=== PATIENT | female | born 2005 | race Two or more races ===

== ENCOUNTER 2023-12-15 11:10 | Outpatient (REF) | payer BC, SELFPAY ==
[2023-12-15 12:45] LABS: MANUAL DIFF FLAG NO
[2023-12-15 13:27] LABS: Basophils Percent Auto 0.4 % (0-2); Eosinophils Percent Auto 0.2 % (0-4); Hematocrit 35.9 % (37.0-47.0); Hemoglobin 12.5 g/dl (12.0-16.0); Imm Gran Abs Auto 0.01 X10*3/uL (0.00-0.03); Imm Gran Pct Auto 0.2 % (0.0-0.4); Lymphocytes Absolute Auto 2.3 X10*3/uL (1.2-4.9); Lymphocytes Percent Auto 42.4 % (20-40); Mean Corpuscular HGB Conc 34.8 g/dl (31.0-35.0); Mean Corpuscular Hemoglobin 32.9 pg (27.0-33.0); Mean Corpuscular Volume 94.5 fL (80.0-98.0); Mean Platelet Volume 10.4 fL (9.4-12.3); Monocytes Absolute Auto 0.4 X10*3/uL (0.1-1.2); Monocytes Percent Auto 7.7 % (2-11); Neutrophils Absolute Auto 2.6 x10*3/uL (2.0-8.3); Neutrophils Percent Auto 49.1 % (45-73); Platelet Count 285 X10*3/uL (160-400); Red Cell Distribution Width 12.6 % (11.0-16.0); White Blood Count 5.3 X10*3/uL (4.8-10.8)
[2023-12-15 13:28] LABS: Appearance Urine Cloudy; Color Urine Yellow; Glucose Urine UA Negative (Negative); Leukocyte Esterase Urine Negative (Negative); Nitrite Urine Negative (Negative); PH 8.5 (5.0-9.0); UMIC TRIGGER UA YES; Urine Blood Negative (Negative); Urine Ketones Trace mg/dL (Negative); Urine Protein 30 (1+) mg/dL (Neg-Trace)
[2023-12-15 14:08] LABS: Erythrocyte Sedimentation Rate 2 MM/HR (0-20)
[2023-12-15 14:16] LABS: Bacteria Urine Trace (None Seen); Hyaline Casts Urine 0-2 /LPF (0-2); RBC Urine 0-2 /HPF (0-2); Squamous Epithelial Cell Urine 0-2 /HPF (0-2); WBC Urine 0-5 /HPF (0-5)
[2023-12-15 14:17] LABS: Other Crystals Urine Present
[2023-12-15 14:19] LABS: Creatinine Urine 203.32 mg/dL; Protein/Creatinine Ratio, Ur 0.22 (<0.2); Total Protein Urine Random 45 mg/dL (<12)
[2023-12-15 14:20] LABS: Alanine Aminotransferase 8 U/L (0-31); Albumin Level 4.9 g/dL (3.5-5.0); Alkaline Phosphatase 107 U/L (39-117); Anion Gap 15 (12-20); Aspartate Amino Transferase 16 U/L (5-31); Bilirubin Total 0.7 mg/dL (0.0-1.0); Blood Urea Nitrogen 9 mg/dL (9-16); C Reactive Protein < 0.04 mg/dL (< or = 0.50); Calcium 10.1 mg/dL (8.4-10.2); Carbon Dioxide 25 mmol/L (22-29); Chloride 103 mmol/L (96-108); Estimated Glomerular Filt Rate > 60; Glucose Random 82 mg/dL (60-115); Potassium 3.6 mmol/L (3.3-5.1); Sodium 139 mmol/L (135-145); Total Protein 7.6 g/dL (6.5-8.0)
[2023-12-16 08:09] LABS: HBS Num1 15.81 mIU/mL (0-7.99); HBc Num1 0.14 S/CO (0.00-0.79); HBsAGNum1 0.35 S/CO (0.00-0.99); Hepatitis A Antibody IgM 0.11 Index (0-0.79); Hepatitis B Core Antibody Nonreactive (Nonreactive); Hepatitis B Surface Antigen Negative (Negative); ~HepC Num1 0.08 S/CO (0.00-0.79); ~Hepatitis A Antibody IgM Nonreactive (Nonreactive); ~Hepatitis B Surface Antibody REACTIVE (Nonreactive); ~Hepatitis C Antibody Nonreactive (Nonreactive)
[2023-12-16 20:55] LABS: Anti DNA DS Antibody <1 IU/mL; Antibody to SS-A Antigen <1.0 NEG AI (<1.0 NEG); Antibody to SS-B Antigen <1.0 NEG AI (<1.0 NEG); SM/Ribonucleoprotein Ab <1.0 NEG AI (<1.0 NEG); Smith Protein <1.0 NEG AI (<1.0 NEG)
[2023-12-17 01:39] LABS: Complement C3 91 mg/dL (83-193)
[2023-12-20 13:38] LABS: DNAds, Crithidia Antibody Positive (Negative)
[2023-12-20 14:08] LABS: DNAds, Crithidia Antibody 1:40 titer (<1:10)
[2023-12-22 12:14] LABS: Anti Nuclear Antibody Screen POSITIVE (NEGATIVE)
== END 2023-12-15 11:11 | disposition home or self-care (01) ==
LOC: HO.LAB 11:10
PROVIDERS: PCP Nurse Practitioner Family; Visit Provider Student in an Organized Health Care Education/Training Program
DX: M32.9 Systemic lupus erythematosus, unspecified (principal); R76.0 Raised antibody titer
CPT/HCPCS: 36415; 80053; 81001; 82570; 84156; 85025; 85652; 86038; 86039; 86140; 86160; 86225; 86235; 86255; 86704; 86706; 86709; 86803; 87340

== ENCOUNTER 2023-12-15 11:10 | Outpatient (AMB) | payer BC, SELFPAY ==
--- NOTE | 2023-12-15 11:34 | A.OFFVIS_ITS ---
Vital Signs 12/15/23 11:36 Height 5 ft 4 in Weight 109 lb 5.588 oz BMI 18.8 BP 108/66 Blood Pressure Location Rt brachial Position Sitting Pulse 97 Pulse Source Pulse Oximeter Pulse Oximetry (%) 99 Oxygen Delivery Method Room Air Intake Visit Reasons: +ZO Intake Note: New patient presents today for +ZO consult. History of anemia, polyarthritis. C/o pain in multiple joints worse with activity, denies swelling or redness. Unintentional weight loss and muscle weakness Started Sep 2023 Timber Cutter Required: No Accompanied by: Self / Same As Patient Allergies No Known Allergies Allergy (Verified 12/15/23 11:44) Medication List - Last Reconciled 12/15/23 by Jai Montes MD dextroamphetamine-amphetamine 25 mg ER 1 cap PO QAM dextroamphetamine-amphetamine 30 mg ER 1 cap PO DAILY escitalopram oxalate 10 mg PO DAILY HPI Comments Details: This is a 18-year-old female who presents for evaluation of positive ZO. Patient stated that she started to have rib pain since she was 5 to 6 years old. She does not recall any specific diagnosis that was given for her rib pain. She also stated that she started having pain in her back that started June of 2023. She had a basketball injury at age 14 and injured her right knee but she states that she continues to have knee pain. Has any swollen or tender joints. She takes ibuprofen intermittently. She denies any skin rashes. She states that she lost about 20 lb since July when she was started on Adderall. Denies any history of DVT/PE. Patient was never and never attempted . She is unaware of any family history of an autoimmune rheumatic disease. Denies history suggestive of Raynaud's. Denies any oral ulcers. Denies any blood or frothy urine [facility] Medical History (Updated 12/15/23 @ 12:13 by Jai Montes MD) Raised antibody titer Iron deficiency anemia Paresthesia of skin Pain in joint, multiple sites Surgical History No history of previous surgery Family History Father Hypertension Maternal Grandfather Heart disease Paternal Grandmother Breast cancer Mother No problems noted. Other Family history of diabetes mellitus Review of Systems Const Reports fatigue and Reports weight loss ENT Reports tinnitus Card Reports dyspnea Resp Reports dyspnea GI Reports nausea Musc Reports arthralgias and Denies joint swelling Skin/Breast Denies rash and Reports unusual bruising Psych Reports anxiety and Reports depression Endo Reports fatigue Physical Exam Const General: cooperative, healthy appearing and comfortable Nutritional Appearance: thin Orientation/consciousness: patient oriented x3 Limitations: no limitations HEENT Head: Yes normocephalic and Yes atraumatic Mouth: Normal oral and palatal mucosa present Resp Effort & Inspection: normal respiratory effort and able to speak in complete sentences Auscultation: clear to auscultation bilaterally Cardio Rate: regular rate Rhythm: regular rhythm Skin General skin exam: no rashes or lesions noted Neuro General: patient oriented x3 Extrem Other: No active synovitis Normal nailfold capillaroscopy Bilateral paraspinal upper thoracic muscle tenderness Results Reviewed Results Reviewed: Labs 10/2023 ZO positive 1-160 mitotic intracellular bridge pattern? RF/SCL 70/MORTGAGE ORIGINATOR? negative? ESR 2? Assessment & Plan Assessment & Plan (1) Raised antibody titer: Code(s): R76.0 - Raised antibody titer Category: Medical Plan: This is a 18-year-old female who presents for evaluation of a positive ZO. This was in the context of polyarthralgia. Will order comprehensive serology to screen for underlying autoimmune rheumatic disease. Patient will call the clinic in about 4 weeks to go over her labs Plan I spent 30 minutes reviewing patient's chart, evaluating patient, ordering diagnostic workup, counseling patient and documenting in the chart Orders: Orders Anti Extractable Nuclear Ag Today M32.9 - Systemic lupus erythematosus, unspecified Complement C4 Today M32.9 - Systemic lupus erythematosus, unspecified C Reactive Protein Today M32.9 - Systemic lupus erythematosus, unspecified Erythrocyte Sedimentation Rate Today M32.9 - Systemic lupus erythematosus, unspecified UA w Microscopic Today M32.9 - Systemic lupus erythematosus, unspecified Complete Blood Count Auto Diff Today M32.9 - Systemic lupus erythematosus, unspecified ZO Reflex Titer and Pattern Today M32.9 - Systemic lupus erythematosus, unspecified Anti DNA DS Antibody Today M32.9 - Systemic lupus erythematosus, unspecified Complement C3 Today M32.9 - Systemic lupus erythematosus, unspecified DNA Double Stranded-Crithidia Today M32.9 - Systemic lupus erythematosus, unspecified Protein Creatinine Ratio, Ur Today M32.9 - Systemic lupus erythematosus, unspecified Sjogren's Antibodies Today M32.9 - Systemic lupus erythematosus, unspecified Comprehensive Met. Panel Today M32.9 - Systemic lupus erythematosus, unspecified Hepatitis A,B,C Profile Today M32.9 - Systemic lupus erythematosus, unspecified Coding Level of Care Code New Pt Level 3 (75972) Diagnoses Raised antibody titer R76.0
[2023-12-15 11:36] VITALS: BP 108/66; PULSE 97; O2SAT 99; BMI 18.8
== END 2023-12-15 12:08 | disposition home or self-care (01) ==
PROVIDERS: PCP Nurse Practitioner Family; Visit Provider Student in an Organized Health Care Education/Training Program
DX: R76.0 Raised antibody titer (principal)
CPT/HCPCS: 99203

== ENCOUNTER 2024-10-05 09:17 | Outpatient (AMB) | payer BC, SELFPAY ==
--- NOTE | 2024-10-05 09:19 | A.OFFVIS_ITS ---
Vital Signs 10/05/24 09:25 Height 5 ft 4 in Weight 113 lb 5.082 oz BMI 19.4 BP 90/60 Blood Pressure Location Lt brachial Position Sitting Pulse 66 Pulse Source Pulse Oximeter Pulse Oximetry (%) 99 Oxygen Delivery Method Room Air Intake Visit Reasons: discuss lab res Intake Note: Patient presents to discuss lab results. Allergies devyn Allergy (Mild, Uncoded 10/05/24 09:23) Itching Medication List - Last Reconciled 10/05/24 by Tori Britt MD dextroamphetamine-amphetamine 12.5 mg (Adderall) 12.5 mg PO BID dextroamphetamine-amphetamine 25 mg ER 1 cap PO QAM dextroamphetamine-amphetamine 30 mg ER 1 cap PO DAILY escitalopram oxalate 10 mg PO DAILY HPI Comments Details: Patient is a 19-year-old female depression on escitalopram here today for follow up of positive ZO Interval History: Patient last seen 12/15/[address] Montes. At that time she was being evaluated for polyarthralgias in the setting of positive ZO. At that time there was low suspicion for an autoimmune disease and patient was not followed up Patient states that she tried to follow up for her blood results however there was a lot of miscommunication and conflicts with her schedule has a college student. Today she is here to follow up for her blood results as well as for re- evaluation. Patient reports pain involving her back, hands, knees and ankles. 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 Originally from [facility] She denies any prolonged morning stiffness. States that her pain is usually worse at the end of the day or with overuse. Denies rashes, photosensitivity, alopecia, oral/nasal ulcers, sicca symptoms, lymphadenopathy, chest pain/shortness of breath, inflammatory type joint pain, foamy urine, lower extremity edema, muscle weakness, Raynaud's Also denies history of seizure, CVA, psychosis, history of kidney problems, history of cytopenias, history of VTE including PE or DVTs OB History: Has never been Rheumatologic History: Initial history: This is a 18-year-old female who presents for evaluation of positive ZO. Patient stated that she started to have rib pain since she was 5 to 6 years old. She does not recall any specific diagnosis that was given for her rib pain. She also stated that she started having pain in her back that started June of 2023. She had a basketball injury at age 14 and injured her right knee but she states that she continues to have knee pain. Has any swollen or tender j oints. She takes ibuprofen intermittently. She denies any skin rashes. She states that she lost about 20 lb since July when she was started on Adderall. Denies any history of DVT/PE. Patient was never and never attempted . She is unaware of any family history of an autoimmune rheumatic disease. Denies history suggestive of Raynaud's. Denies any oral ulcers. Denies any blood or frothy urine Current Rheumatology Medication(s): [facility] Medical History (Updated 12/15/23 @ 12:13 by Jai Montes MD) Raised antibody titer Iron deficiency anemia Paresthesia of skin Pain in joint, multiple sites Surgical History No history of previous surgery Family History Father Hypertension Maternal Grandfather Heart disease Paternal Grandmother Breast cancer Mother No problems noted. Other Family history of diabetes mellitus Review of Systems Const Details: Review of Systems Constitutional: Denies fever, chills, weight loss ENT: Denies vision changes, eye pain or eye redness, dental caries, dry mouth GI: Denies nausea, vomiting, diarrhea, abdominal pain, change in BM Pulm: Denies SOB, CARUSO, hemoptysis, wheezing Cards: Denies chest pain, palpitations Skin: Denies Raynaud's, rash, nail changes, photosensitivity, RIGGER THIRD: Denies headaches, weakness, paresthesias, recurrent falls MSK: as per HPI All other systems reviewed and are unremarkable except noted above Physical Exam Vital signs reviewed Physical Examination CONSTITUITIONAL Patient alert and cooperative. Well appearing and in no apparent painful distress HEENT Conjunctiva and sclera clear. ?Pupils equal round and reactive to light. ?No lymphadenopathy. ? CHEST/RESPIRATORY SYSTEM Normal respiratory effort and able to speak in complete sentences. ?Clear to auscultation bilaterally. ?No crackles, rales, rhonchi, wheezes heard. CARDIAC SYSTEM Regular rate and rhythm. ?S1 and S2 heard no murmurs. ?Radial pulses intact bilaterally MSK Hands: ?Good bus escort strength bilaterally. No deformities noted. ?No synovitis noted to the MCPs, PIPs or DIPs. ?No tenderness to palpation of these joints. Wrists: ?Full range of motion at the wrists without pain. ?No tenderness to palpation or synovitis noted to the wrists. Elbows: Full range of motion without pain. No tenderness, weakness, swelling, increased warmth or erythema. Tenderness to palpation of bilateral lateral epicondyles with resisted wrist extension exacerbating the pain Shoulders: Full range of motion without pain. No tenderness, weakness, swelling, increased warmth or erythema. Hips: Full range of motion without pain. Hip bursa: No tenderness to palpation Knees: ?Full range of motion. ?No tenderness, swelling, increased warmth or erythema.?No effusion or crepitations Ankles: Full range of motion. ?No tenderness, swelling, increased warmth or erythema.? Tenderness to palpation of the Achilles tendon Feet: ?Negative squeeze test. ?No tenderness to palpation or swelling of the MTPs. Tender points:?No tenderness to palpation of the bilateral trapezius, supraspinatus, greater trochanters, anterior costochondral junctions, bilateral gluteal areas, bilateral suboccipital muscle insertions Normal modified Ramírez's test 10cm - 15cm Negative FLAIR maneuvers bilaterally SKIN Eczema rash noted to the left antecubital fossa Results Reviewed Results Reviewed: Laboratory Tests 12/15/23 12:43 WBC 5.3 RBC 3.80 L Hgb 12.5 Hct 35.9 L Plt Count 285 ESR 2 Sodium 139 Potassium 3.6 Chloride 103 Carbon Dioxide 25 BUN 9 Creatinine 0.81 AST 16 ALT 8 Alkaline Phosphatase 107 C-Reactive Protein < 0.04 Total Protein 7.6 Urine Tests 12/15/23 13:10 Urine Color Yellow Urine Appearance Cloudy Urine pH 8.5 Ur Specific Arminto 1.020 Urine Protein 30 (1+) H Urine Glucose (UA) Negative Urine Ketones Trace Urine Blood Negative Urine Nitrite Negative Ur Leukocyte Esterase Negative Protein/Creatinin Ratio 0.22 H Immunology Tests 12/15/23 12:43 ZO Screen POSITIVE A ZO Titer 1:80 H SS-A/Ro Antibody <1.0 NEG SS-B/La Antibody <1.0 NEG Sm (Bañuelos) Antibody <1.0 NEG SM/PUBLIC SERVICE DIRECTOR IgG Antibody <1.0 NEG Double Strand DNA Ab <1 Anti-ds DNA Titer (Crith) 1:40 H Anti-ds DNA (Crithidia) Positive A Complement C3 91 Complement C4 22 Assessment & Plan Assessment & Plan (1) Polyarthralgia: Code(s): M25.50 - Pain in unspecified joint Plan: #Polyarthralgias Patient is a 19[facility] who presents for follow up of her polyarthralgias in the setting of ZO and double-stranded DNA. At this time her signs and symptoms are not consistent with an underlying autoimmune disease. The rash in her antecubital fossa is likely an eczematous rash which she is currently using topical triamcinolone for. The back pain and the tenderness to palpation of the epicondyles as well as the Achilles tendon do concern me for possible spondyloarthritis though the suspicion is still low given that she does not have inflammatory type back pain. That being said we will recheck labs today as well as x-rays Plan - Check CBC, CMP, ESR, CRP, ZO, dsDNA, C3, C4, UA, UPC, HLA B27, B2G, ACL, LA, - Check XRs L-spine, SI joint, hands/wrists, knees - RTC 2 weeks (2) Positive ZO (antinuclear antibody): Code(s): R76.8 - Other specified abnormal immunological findings in serum Plan: #Positive ZO The presence of antinuclear antibodies (ZO) is mainly associated with connective tissue diseases (CTD). ?However, their presence is found in healthy people especially in women and patients >65. ?In healthy individuals, the frequency of ZO has been shown to be 31.7% of individuals at 1:40 serum dilution, 13.3% at 1:80, 5.0% at 1:160, and 3.3% at 1:320 (2). Some drugs and xenobiotics are also important for the development of ZO (hydralazine, hydrochlorothiazide, minocycline, terbinafine, ciprofloxacin, furosemide, omeprazole). Moreover, the deficiency of vitamin D in the body of patients correlates with occurrence of these antibodies (1). At this time there is low suspicion for a connective tissue disease. ? 1. Khari?mónica Jung, Sarai Brooke, Paloma Davila. Antinuclear antibodies in healthy people and non-rheumatic diseases - diagnostic and clinical implications. Reumatologia. 2018;56(4):243-248. doi: 10.5114/reum.2018.31196. Epub 2017Apr 02. PMID: 22649672; PMCID: [id number]. 2. Taylor EM, Chuckie TE, Susana JS, Dena B, Olya R, Mike MJ, Brady T, Shahid JA, Litzy JR, Gordon RG, Marquez RN, Kayla JS, Marjorie NF, Nallely RJ, Takdianelys Y, Kirt A, Ramon MR, Ignacio JA. Range of antinuclear antibodies in healthy individuals. Arthritis Rheum. 1996;40(9):1601-11. doi: 10.1002/art.[id number]. PMID: 4692562. Plan I spent 30 minutes reviewing the record and labs, taking a history, examining the patient, discussing the treatment plan and documenting in the medical record Orders: Orders Complete Blood Count Auto Diff Today R76.8 - Other specified abnormal immunological findings in serum Comprehensive Met. Panel Today R76.8 - Other specified abnormal immunological findings in serum C Reactive Protein Today R76.8 - Other specified abnormal immunological findings in serum Erythrocyte Sedimentation Rate Today R76.8 - Other specified abnormal immunological findings in serum HLA B27 Today R76.8 - Other specified abnormal immunological findings in serum Anti DNA DS Antibody Today R76.8 - Other specified abnormal immunological findings in serum Complement C3 Today R76.8 - Other specified abnormal immunological findings in serum Complement C4 Today R76.8 - Other specified abnormal immunological findings in serum XR knee LT 3V Today R76.8 - Other specified abnormal immunological findings in serum XR sacroiliac joint min 3V Today R76.8 - Other specified abnormal immunological findings in serum XR hand wrist LT Today R76.8 - Other specified abnormal immunological findings in serum XR hand wrist RT Today R76.8 - Other specified abnormal immunological findings in serum XR ankle LT min 3V Today R76.8 - Other specified abnormal immunological findings in serum Beta-2 Glycoprotein Antibody Today R76.8 - Other specified abnormal immunological findings in serum Cardiolipin Antibodies Today R76.8 - Other specified abnormal immunological f indings in serum Lupus Anticoagulant Panel Today R76.8 - Other specified abnormal immunological findings in serum Thyroglobulin Antibodies Today R76.8 - Other specified abnormal immunological findings in serum Vitamin D 25-OH (D2 and D3) Today E55.9 - Vitamin D deficiency, unspecified Protein Creatinine Ratio, Ur Today R76.8 - Other specified abnormal immunological findings in serum UA w Microscopic Today R76.8 - Other specified abnormal immunological findings in serum ZO Reflex Titer and Pattern Today R76.8 - Other specified abnormal immunological findings in serum NE electromyogram (EMG) Today G56.03 - Carpal tunnel syndrome, bilateral upper limbs, R76.8 - Other specified abnormal immunological findings in serum XR knee RT 3V Today R76.8 - Other specified abnormal immunological findings in serum XR lumbar spine 4V min Today R76.8 - Other specified abnormal immunological findings in serum XR ankle RT min 3V Today R76.8 - Other specified abnormal immunological findings in serum Thyroid Peroxidase Antibodies Today R76.8 - Other specified abnormal immunological findings in serum Coding Level of Care Code Est Pt Level 4 (09683) Diagnoses Polyarthralgia M25.50 Positive ZO (antinuclear antibody) R76.8
[2024-10-05 09:25] VITALS: BP 90/60; PULSE 66; O2SAT 99; BMI 19.4
== END 2024-10-05 10:17 | disposition home or self-care (01) ==
PROVIDERS: PCP Nurse Practitioner Family; Visit Provider Student in an Organized Health Care Education/Training Program
DX: M25.50 Pain in unspecified joint (principal); R76.8 Other specified abnormal immunological findings in serum
CPT/HCPCS: 99214

== ENCOUNTER 2024-10-07 09:09 | Outpatient (REF) | payer BC, SELFPAY ==
[2024-10-07 09:41] LABS: MANUAL DIFF FLAG NO
[2024-10-07 10:30] LABS: Basophils Percent Auto 0.4 % (0-2); Eosinophils Percent Auto 0.8 % (0-4); Hematocrit 39.1 % (37.0-47.0); Hemoglobin 13.5 g/dl (12.0-16.0); Imm Gran Abs Auto 0.02 X10*3/uL (0.00-0.03); Imm Gran Pct Auto 0.4 % (0.0-0.4); Lymphocytes Absolute Auto 2.2 X10*3/uL (1.2-4.9); Lymphocytes Percent Auto 43.5 % (20-40); Mean Corpuscular HGB Conc 34.5 g/dl (31.0-35.0); Mean Corpuscular Hemoglobin 32.5 pg (27.0-33.0); Mean Corpuscular Volume 94.2 fL (80.0-98.0); Mean Platelet Volume 10.1 fL (9.4-12.3); Monocytes Absolute Auto 0.4 X10*3/uL (0.1-1.2); Monocytes Percent Auto 7.5 % (2-11); Neutrophils Absolute Auto 2.3 x10*3/uL (2.0-8.3); Neutrophils Percent Auto 47.4 % (45-73); Platelet Count 301 X10*3/uL (160-400); Red Blood Count 4.15 X10*6/uL (4.20-5.50); Red Cell Distribution Width 12.5 % (11.0-16.0); White Blood Count 4.9 X10*3/uL (4.8-10.8)
[2024-10-07 11:07] LABS: Alanine Aminotransferase 17 U/L (0-31); Albumin Level 4.8 g/dL (3.5-5.0); Alkaline Phosphatase 100 U/L (39-117); Anion Gap 12 (12-20); Aspartate Amino Transferase 25 U/L (5-31); Bilirubin Total 1.2 mg/dL (0.0-1.0); Blood Urea Nitrogen 13 mg/dL (9-16); C Reactive Protein < 0.04 mg/dL (< or = 0.50); Carbon Dioxide 27 mmol/L (22-29); Chloride 104 mmol/L (96-108); Estimated Glomerular Filt Rate > 60; Glucose Random 101 mg/dL (60-115); Sodium 139 mmol/L (135-145)
[2024-10-07 11:27] LABS: Erythrocyte Sedimentation Rate 2 MM/HR (0-20)
[2024-10-10 16:33] LABS: ANA Pattern 2 Nuclear, Nucleolar; ANA Titer 2 1:40 titer; Anti Nuclear Antibody Screen POSITIVE (NEGATIVE)
[2024-10-10 19:04] LABS: Anti DNA DS Antibody <1 IU/mL; Cardiolipin IgG Ab <2.0 GPL-U/mL; Cardiolipin IgM Ab <2.0 MPL-U/mL; Complement C3 107 mg/dL (83-193)
[2024-10-11 15:03] LABS: Thyroglobulin Antibodies 1 IU/mL (< or = 1); Thyroid Peroxidase Antibodies <1 IU/mL (<9)
[2024-10-11 18:14] LABS: Beta-2 Glycoprotein IgA <2.0 U/mL (<20.0); Beta-2 Glycoprotein IgG <2.0 U/mL (<20.0); Beta-2 Glycoprotein IgM <2.0 U/mL (<20.0)
[2024-10-12 07:04] LABS: PTT (LAC) Screen 37 sec (<=40)
[2024-10-13 00:49] LABS: HLA B27 Negative (Negative)
[2024-10-13 23:24] LABS: Vitamin D 25-OH, D2 <4 ng/mL; Vitamin D 25-OH, D3 18 ng/mL; Vitamin D 25-OH, Total 18 ng/mL (30-100)
== END 2024-10-07 09:10 | disposition home or self-care (01) ==
LOC: HO.XRAY 09:09
PROVIDERS: PCP Nurse Practitioner Family; Visit Provider Student in an Organized Health Care Education/Training Program
DX: R76.8 Other specified abnormal immunological findings in serum (principal); E55.9 Vitamin D deficiency, unspecified
CPT/HCPCS: 36415; 80053; 82306; 85025; 85597; 85598; 85613; 85652; 85730; 86038; 86039; 86140; 86146; 86147; 86160; 86225; 86376; 86800; 86812

== ENCOUNTER 2024-10-10 13:25 | Outpatient (REF) | payer BC, SELFPAY ==
--- NOTE | ~2024-10-10 | XR_ITS ---
CLINICAL HISTORY: R76.8 - Other specified abnormal immunological findings in serum 4 view left wrist Comparison: None Findings: Bones intact. No dislocations. No significant arthritic change or erosions. No radiopaque foreign body. IMPRESSION: 1. No acute findings This document has been electronically signed by: Jarett Larson MD on 10/12/2024 09:59:27
--- NOTE | ~2024-10-10 | XR_ITS ---
CLINICAL HISTORY: R76.8 - Other specified abnormal immunological findings in serum 3 views sacroiliac joints Comparison: None Findings No acute fractures. No significant degenerative change. No erosions. Minimal sclerotic change along the SI joints bilaterally IMPRESSION: No acute findings. There is minimal nonspecific sclerotic change along the sacroiliac joints bilaterally. This document has been electronically signed by: Jarett Larson MD on 10/12/2024 10:00:33
--- NOTE | ~2024-10-10 | XR_ITS ---
CLINICAL HISTORY: R76.8 - Other specified abnormal immunological findings in serum 5 views lumbar spine Comparison: None Findings: Normal vertebral body alignment. No acute fractures or dislocation. No significant degenerative change. IMPRESSION: No acute findings. This document has been electronically signed by: Jarett Larson MD on 10/12/2024 10:00:55
--- NOTE | ~2024-10-10 | XR_ITS ---
CLINICAL HISTORY: R76.8 - Other specified abnormal immunological findings in serum 3 view right ankle Comparison: None Findings: No acute fractures. Ankle mortise intact. No significant arthritic change or erosions. No ankle effusion. No radiopaque foreign body. IMPRESSION: 1. No acute findings. This document has been electronically signed by: Jarett Larson MD on 10/12/2024 10:01:52
--- NOTE | ~2024-10-10 | XR_ITS ---
CLINICAL HISTORY: R76.8 - Other specified abnormal immunological findings in serum 3 view left ankle Comparison: None Findings: No acute fractures or dislocations. No significant loss of joint space, osteophytes, or erosions. No ankle effusion. No radiopaque foreign body. IMPRESSION: 1. No acute findings. This document has been electronically signed by: Jarett Larson MD on 10/12/2024 09:59:57
--- NOTE | ~2024-10-10 | XR_ITS ---
CLINICAL HISTORY: OTHER SPECIFIED ABNORMAL IMMUNLOGICAL 4 view right wrist Comparison: None Findings: Bones intact. No dislocations. No significant loss of joint space, osteophyte, or erosions. No radiopaque foreign body. IMPRESSION: 1. No acute findings This document has been electronically signed by: Jarett Larson MD on 10/12/2024 10:02:11
--- NOTE | ~2024-10-10 | XR_ITS ---
CLINICAL HISTORY: R76.8 - Other specified abnormal immunological findings in serum 3 views of each hand Comparison: None Findings: Right hand: No fractures or dislocations. No significant loss of joint space or osteophytes. No erosions. No radiopaque foreign body. Left hand: No fractures or dislocations. No significant loss of joint space or osteophytes. No erosions. No radiopaque foreign body. IMPRESSION: 1. No acute findings 2. No suspicious erosions This document has been electronically signed by: Jarett Larson MD on 10/12/2024 10:02:34
--- NOTE | ~2024-10-10 | XR_ITS ---
CLINICAL HISTORY: R76.8 - Other specified abnormal immunological findings in serum 3 view right knee Comparison: None Findings: Bones intact. No dislocations. No significant loss of joint space or erosions. No joint effusion. No radiopaque foreign body. IMPRESSION: 1. No acute findings. This document has been electronically signed by: Joanne Chery MD on 10/11/2024 19:05:40
--- NOTE | ~2024-10-10 | XR_ITS ---
CLINICAL HISTORY: R76.8 - Other specified abnormal immunological findings in serum 3 view left knee Comparison: None Findings: Bones intact. No dislocations. No significant loss of joint space, osteophytes, or erosions. No joint effusion. No radiopaque foreign body. IMPRESSION: 1. No acute findings. This document has been electronically signed by: Joanne Chery MD on 10/11/2024 17:19:25
[2024-10-10 14:11] LABS: Appearance Urine Clear; Color Urine Dark Yellow; Glucose Urine UA Negative (Negative); Leukocyte Esterase Urine Trace (Negative); Nitrite Urine Negative (Negative); PH 6.5 (5.0-9.0); Specific Gravity - Urine 1.025 (1.005-1.025); UMIC TRIGGER UA YES; Urine Blood Negative (Negative); Urine Ketones Trace mg/dL (Negative); Urine Protein Negative (Neg-Trace)
[2024-10-10 14:24] LABS: Creatinine Urine 234.66 mg/dL; Protein/Creatinine Ratio, Ur 0.06 (<0.2); Total Protein Urine Random 14 mg/dL (<12)
[2024-10-10 14:26] LABS: Bacteria Urine None Seen (None Seen); Hyaline Casts Urine 0-2 /LPF (0-2); RBC Urine 0-2 /HPF (0-2); Squamous Epithelial Cell Urine 0-2 /HPF (0-2); WBC Urine 0-5 /HPF (0-5)
== END 2024-10-10 13:26 | disposition home or self-care (01) ==
LOC: HO.XRAY 13:25
PROVIDERS: PCP Nurse Practitioner Family; Visit Provider Student in an Organized Health Care Education/Training Program
DX: R76.8 Other specified abnormal immunological findings in serum (principal)
CPT/HCPCS: 72110; 72202; 73110; 73130; 73562; 73610; 81001; 82570; 84156

== ENCOUNTER → 2024-10-10 13:33 | Outpatient (BNV) | payer BC, SELFPAY | PROVIDERS: PCP Nurse Practitioner Family; Visit Provider Specialist | DX: R76.8 Other specified abnormal immunological findings in serum (principal) | CPT/HCPCS: 72110; 72202; 73110; 73130; 73562; 73610 ==

== ENCOUNTER 2024-10-21 12:20 | Outpatient (AMB) | payer BC, SELFPAY ==
[2024-10-21 12:44] VITALS: BP 108/66; PULSE 102; O2SAT 99; BMI 19.3
--- NOTE | 2024-10-21 12:44 | MHC.OFFVIS ---
Vital Signs 10/21/24 12:44 Height 5 ft 4 in Weight 112 lb 3.445 oz BMI 19.3 BP 108/66 Blood Pressure Location Lt brachial Position Sitting Pulse 102 H Pulse Source Pulse Oximeter Pulse Oximetry (%) 99 Oxygen Delivery Method Room Air Intake Visit Reasons: discuss lab res Intake Note: Patient last seen by Doctor Tori Britt on 10/05/24. Presents today for follow up and XR/labs test results. Allergies devyn Allergy (Mild, Uncoded 10/21/24 12:46) Itching HPI Comments Details: Patient is a 19-year-old female depression on escitalopram here today for follow up of positive ZO Interval History: Patient last seen 10/05/2024 with me. At that time she was following up a year after her initial evaluation for polyarthralgias in the setting of positive ZO. Her history and exam was not consistent with an underlying autoimmune disease but further blood work was done No new symptoms from the last visit Rheumatologic History: Initial history by Dr. Lynch: This is a 18-year-old female who presents for evaluation of positive ZO. Patient stated that she started to have rib pain since she was 5 to 6 years old. She does not recall any specific diagnosis that was given for her rib pain. She also stated that she started having pain in her back that started June of 2023. She had a basketball injury at age 14 and injured her right knee but she states that she continues to have knee pain. Has any swollen or tender joints. She takes ibuprofen intermittently. She denies any skin rashes. She states that she lost about 20 lb since July when she was started on Adderall. Denies any history of DVT/PE. Patient was never and never attempted . She is unaware of any family history of an autoimmune rheumatic disease. Denies history suggestive of Raynaud's. Denies any oral ulcers. Denies any blood or frothy urine History from me: Patient reports pain involving her back, hands, knees and ankles. 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 States that her pain is usually worse at the end of the day or with overuse. Denies rashes, photosensitivity, alopecia, oral/nasal ulcers, sicca symptoms, lymphadenopathy, chest pain/shortness of breath, inflammatory type joint pain, foamy urine, lower extremity edema, muscle weakness, Raynaud's Also denies history of seizure, CVA, psychosis, history of kidney problems, history of cytopenias, history of VTE including PE or DVTs OB History: Has never been Current Rheumatology Medication(s): [facility] Medical History (Updated 12/15/23 @ 12:13 by Jai Montes MD) Raised antibody titer Iron deficiency anemia Paresthesia of skin Pain in joint, multiple sites Surgical History No history of previous surgery Family History Father Hypertension Maternal Grandfather Heart disease Paternal Grandmother Breast cancer Mother No problems noted. Other Family history of diabetes mellitus Review of Systems Const Details: Review of Systems Constitutional: Denies fever, chills, weight loss ENT: Denies vision changes, eye pain or eye redness, dental caries, dry mouth GI: Denies nausea, vomiting, diarrhea, abdominal pain, change in BM Pulm: Denies SOB, CARUSO, hemoptysis, wheezing Cards: Denies chest pain, palpitations Skin: Denies Raynaud's, rash, nail changes, photosensitivity, PIPELINES MANAGER: Denies headaches, weakness, paresthesias, recurrent falls MSK: as per HPI All other systems reviewed and are unremarkable except noted above Physical Exam Vital Signs: Last Vital Signs Pulse 102 H 10/21/24 12:44 BP 108/66 10/21/24 12:44 Pulse Ox 99 10/21/24 12:44 Oxygen Delivery Method Room Air 10/21/24 12:44 BMI result Body Mass Index 19.3 Vital signs reviewed Physical Examination CONSTITUITIONAL Patient alert and cooperative. Well appearing and in no apparent painful distress HEENT Conjunctiva and sclera clear. ?Pupils equal round and reactive to light. ?No lymphadenopathy. ? CHEST/RESPIRATORY SYSTEM Normal respiratory effort and able to speak in complete sentences. ?Clear to auscultation bilaterally. ?No crackles, rales, rhonchi, wheezes heard. CARDIAC SYSTEM Regular rate and rhythm. ?S1 and S2 heard no murmurs. ?Radial pulses intact bilaterally MSK Hands: ?Good neck band maker strength bilaterally. No deformities noted. ?No synovitis noted to the MCPs, PIPs or DIPs. ?No tenderness to palpation of these joints. Wrists: ?Full range of motion at the wrists without pain. ?No tenderness to palpation or synovitis noted to the wrists. Elbows: Full range of motion without pain. No tenderness, weakness, swelling, increased warmth or erythema. Epicondylitis improved bilaterally Shoulders: Full range of motion without pain. No tenderness, weakness, swelling, increased warmth or erythema. Hips: Full range of motion without pain. Hip bursa: No tenderness to palpation Knees: ?Full range of motion. ?No tenderness, swelling, increased warmth or erythema.?No effusion or crepitations Ankles: Full range of motion. ?No tenderness, swelling, increased warmth or erythema.? No tenderness to palpation of the Achilles tendon, but mild tenderness to palpation of the Posterior tibial tendon of the right ankle Feet: ?Negative squeeze test. ?No tenderness to palpation or swelling of the MTPs. Tender points:?No tenderness to palpation of the bilateral trapezius, supraspinatus, greater trochanters, anterior costochondral junctions, bilateral gluteal areas, bilateral suboccipital muscle insertions Normal modified Ramírez's test 10cm - 15cm Negative FLAIR maneuvers bilaterally SKIN No rashes Results Reviewed Results Reviewed: Laboratory Tests 10/07/24 09:40 WBC 4.9 RBC 4.15 L Hgb 13.5 Hct 39.1 Plt Count 301 ESR 2 Sodium 139 Potassium 4.0 Chloride 104 Carbon Dioxide 27 BUN 13 Creatinine 0.83 AST 25 ALT 17 Alkaline Phosphatase 100 C-Reactive Protein < 0.04 25-OH Vitamin D Total 18 L Immunology Labs 10/07/24 09:40 ZO Screen POSITIVE A ZO Titer 1:80 H ZO Titer 2 1:40 H ZO Pattern A ZO Pattern 2 Nuclear, Nucleolar A Double Strand DNA Ab <1 Beta-2-GPI IgG Ab <2.0 Beta-2-GPI IgA Ab <2.0 Beta-2-GPI IgM Ab <2.0 Thyroglobulin Antibody 1 Thyroid Peroxidase Ab <1 Anti-Cardiolipin IgG Ab <2.0 Anti-Cardiolipin IgM Ab <2.0 Complement C3 107 Complement C4 20 HLA-B27 Negative XR Bilateral Knees 10/2024 Findings: Bones intact. No dislocations. No significant loss of joint space or erosions. No joint effusion. No radiopaque foreign body. IMPRESSION: 1. No acute findings. XR Bilateral Ankles 10/2024 Findings: No acute fractures or dislocations. No significant loss of joint space, osteophytes, or erosions. No ankle effusion. No radiopaque foreign body. IMPRESSION: 1. No acute findings. XR L spine 10/2024 Findings: Normal vertebral body alignment. No acute fractures or dislocation. No significant degenerative change. IMPRESSION: No acute findings. XR SI Joints 10/2024 Findings No acute fractures. No significant degenerative change. No erosions. Minimal sclerotic change along the SI joints bilaterally IMPRESSION: No acute findings. There is minimal nonspecific sclerotic change along the sacroiliac joints bilaterally. XR Bilateral Hands 10/2024 Findings: Right hand: No fractures or dislocations. No significant loss of joint space or osteophytes. No erosions. No radiopaque foreign body. Left hand: No fractures or dislocations. No significant loss of joint space or osteophytes. No erosions. No radiopaque foreign body. IMPRESSION: 1. No acute findings 2. No suspicious erosions XR Bilateral Wrists 10/2024 Findings: Bones intact. No dislocations. No significant loss of joint space, osteophyte, or erosions. No radiopaque foreign body. IMPRESSION: 1. No acute findings Assessment & Plan Assessment & Plan (1) Polyarthralgia: Code(s): M25.50 - Pain in unspecified joint Plan: #Polyarthralgias Patient is a 19-[facility]-old [facility] who presents for follow up of her polyarthralgias in the setting of ZO and double-stranded DNA. At this time her signs and symptoms are not consistent with an underlying autoimmune disease. Labs and imaging without evidence of the RA, lupus, Ank Spon or any other underlying CTDs The back pain and the tenderness to palpation of the epicondyles as well as the Achilles tendon do concern me for possible spondyloarthritis though the suspicion is still low given that she does not have inflammatory type back pain. The sclerosis noted on the pelvis is non specific. 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 I discussed that we can potentially get an MRI of the pelvis but that it would likely be normal given the normal inflammatory markers, normal HLA B27, and no inflammatory back pain Her repeated soft tissue rheumatisms are likely mechanical in nature and not related an underlying autoimmune disease. Patient aware of specific signs and symptoms to be mindful of Plan - RTC prn (2) Positive ZO (antinuclear antibody): Code(s): R76.8 - Other specified abnormal immunological findings in serum Plan: #Positive ZO The presence of antinuclear antibodies (ZO) is mainly associated with connective tissue diseases (CTD). ?However, their presence is found in healthy people especially in women and patients >65. ?In healthy individuals, the frequency of ZO has been shown to be 31.7% of individuals at 1:40 serum dilution, 13.3% at 1:80, 5.0% at 1:160, and 3.3% at 1:320 (2). Some drugs and xenobiotics are also important for the development of ZO (hydralazine, hydrochlorothiazide, minocycline, terbinafine, ciprofloxacin, furosemide, omeprazole). Moreover, the deficiency of vitamin D in the body of patients correlates with occurrence of these antibodies (1). At this time there is low suspicion for a connective tissue disease. ? 1. [facility]?mónica Jung, Sarai Brooke, Paloma Davila. Antinuclear antibodies in healthy people and non-rheumatic diseases - diagnostic and clinical implications. Reumatologia. 2018;56(4):243-248. doi: 10.5114/reum.2018.91966. Epub 2017Apr 02. PMID: 74788055; PMCID: [id number]. 2. Taylor EM, Chuckie TE, Susana JS, Dena B, Olya R, Mike MJ, Brady T, Shahid JA, Litzy JR, Gordon RG, Marquez RN, Kayla JS, Marjorie NF, Nallely RJ, Solomon Y, Kirt A, Ramon BREWER, Ignacio ARIZMENDI. Range of antinuclear antibodies in healthy individuals. Arthritis Rheum. 1996;40(9):1601-11. doi: 10.1002/art.4584094716. PMID: 3691615. Plan I spent 30 minutes reviewing the record and labs, taking a history, examining the patient, discussing the treatment plan and documenting in the medical record Coding Level of Care Code Est Pt Level 3 (36375) Diagnoses Polyarthralgia M25.50 Positive ZO (antinuclear antibody) R76.8
== END 2024-10-21 13:33 | disposition home or self-care (01) ==
LOC: HO.RHE 12:21
PROVIDERS: PCP Nurse Practitioner Family; Visit Provider Student in an Organized Health Care Education/Training Program
DX: M25.50 Pain in unspecified joint (principal); R76.8 Other specified abnormal immunological findings in serum
CPT/HCPCS: 99213

== ENCOUNTER 2024-11-02 10:02 | Outpatient (REF) | payer BC, SELFPAY ==
--- NOTE | 2024-11-02 10:06 | EMG_ITS ---
Chief complaint: Hand numbness, arthralgia Reason for referral: Evaluate for Carpal Tunnel Syndrome Referred by: Dr. Britt Procedure done: Bilateral upper extremities NCS/EMG Precautions and/or limitations: None The limb temperature was monitored continuously and remained between 32-36 degrees C during the performance of the NCS. Nerve Conduction Studies Anti Sensory Summary Table ?Stim Site NR Onset (ms) Norm Onset (ms) Peak (ms) Norm Peak (ms) O-P Amp (?V) Norm O-P Amp Site1 Site2 Delta-0 (ms) Dist (cm) Eugene (m/s) Norm Eugene (m/s) Left Median Anti Sensory (2nd Digit) Wrist ? 2.4 3.4 <3.6 76.0 >10 Wrist 2nd Digit 2.4 14.0 58 Right Median Anti Sensory (2nd Digit) Wrist ? 2.4 3.4 <3.6 69.4 >10 Wrist 2nd Digit 2.4 14.0 58 Right Radial Anti Sensory (Thumb) Forearm ? 1.6 2.3 <3.1 48.5 Forearm Thumb 1.6 0.0 Left Ulnar Anti Sensory (5th Digit) Wrist ? 2.2 3.1 <3.7 67.9 >15.0 Wrist 5th Digit 2.2 14.0 64 Right Ulnar Anti Sensory (5th Digit) Wrist ? 2.6 3.5 <3.7 51.4 >15.0 Wrist 5th Digit 2.6 14.0 54 Motor Summary Table ?Stim Site NR Onset (ms) Norm Onset (ms) O-P Amp (mV) Norm O-P Amp iAmp (mV) Amp (1st) (%) Site1 Site2 Delta-0 (ms) Dist (cm) Eugene (m/s) Norm Eugene (m/s) Left Median Motor (Abd Poll Brev) Wrist ? 3.5 <3.9 12.8 >4.5 15.1 100.0 Elbow Wrist 3.5 19.0 54 >45 Elbow ? 7.0 12.4 15.1 96.9 Right Median Motor (Abd Poll Brev) Wrist ? 3.5 <3.9 13.5 >4.5 16.0 100.0 Elbow Wrist 3.3 19.0 58 >45 Elbow ? 6.8 13.9 16.5 103.0 Left Ulnar Motor (Abd Dig Minimi) Wrist ? 2.8 <3.0 8.8 >5 10.7 100.0 B Elbow Wrist 3.2 17.0 53 >45 B Elbow ? 6.0 8.9 11.0 101.1 A Elbow B Elbow 1.9 10.0 53 >45 A Elbow ? 7.9 8.7 11.1 98.9 Right Ulnar Motor (Abd Dig Minimi) Wrist ? 2.9 <3.0 10.3 >5 11.6 100.0 B Elbow Wrist 3.0 18.0 60 >45 B Elbow ? 5.9 9.7 11.3 94.2 A Elbow B Elbow 1.8 10.0 56 >45 A Elbow ? 7.7 9.7 11.1 94.2 EMG ?Side Muscle Nerve Root Ins Act Fibs Psw Amp Dur Poly Recrt Int Pat Comment Right 1stDorInt Ulnar C8-T1 Nml Nml Nml Nml Nml 0 Nml Complete Right FlexCarRad Median C6-7 Nml Nml Nml Nml Nml 0 Nml Complete Right Biceps Musculocut C5-6 Nml Nml Nml Nml Nml 0 Nml Complete Right Triceps Radial C6-7-8 Nml Nml Nml Nml Nml 0 Nml Complete Right Deltoid Axillary C5-6 Nml Nml Nml Nml Nml 0 Nml Complete Left 1stDorInt Ulnar C8-T1 Nml Nml Nml Nml Nml 0 Nml Complete Left FlexCarRad Median C6-7 Nml Nml Nml Nml Nml 0 Nml Complete Left Biceps Musculocut C5-6 Nml Nml Nml Nml Nml 0 Nml Complete Left Triceps Radial C6-7-8 Nml Nml Nml Nml Nml 0 Nml Complete Left Deltoid Axillary C5-6 Nml Nml Nml Nml Nml 0 Nml Complete FINDINGS: All motor and sensory nerves tested showed normal latencies, amplitudes and conduction velocities. Concentric needle EMG was performed in selected muscles of the bilateral upper extremities. Study did not reveal signs of electric abnormalities as shown in the table above. IMPRESSION: 1. This is a normal study. 2. There is no electrodiagnostic evidence for median neuropathy, ulnar neuropathy, brachial plexopathy, or cervical radiculopathy. Thank you for your kind referral. Anitra Pinzon MD, NAKUL Board Certified, [place] Board of Physical Medicine and Rehabilitation (ABPMR) Board Certified, [place] Board of Electrodiagnostic Medicine (ABEM) CODIN [phone] x 2 MTDD
== END 2024-11-02 10:03 | disposition home or self-care (01) ==
LOC: HO.NEURO 10:02
PROVIDERS: PCP Nurse Practitioner Family; Visit Provider Student in an Organized Health Care Education/Training Program
DX: R76.8 Other specified abnormal immunological findings in serum (principal); G56.03 Carpal tunnel syndrome, bilateral upper limbs; R76.0 Raised antibody titer; G62.9 Polyneuropathy, unspecified; M25.50 Pain in unspecified joint; R20.0 Anesthesia of skin
CPT/HCPCS: 95860; 95886; 95911

== ENCOUNTER → 2024-11-02 10:06 | Outpatient (BNV) | payer BC, SELFPAY | PROVIDERS: PCP Nurse Practitioner Family; Visit Provider Physical Medicine & Rehabilitation | DX: R20.0 Anesthesia of skin (principal); R20.2 Paresthesia of skin | CPT/HCPCS: 95886; 95911 ==

== ENCOUNTER 2025-05-07 01:30 | Emergency (ER) | payer BC, SELFPAY ==
[2025-05-07 01:42] VITALS: BP 100/50; BP 100/60; PULSE 65; PULSE 90; RESP 20; TEMP 36.1; O2SAT 100; BMI 18.3
--- NOTE | 2025-05-07 01:55 | ED.ALCOHOL ---
HPI - Alcohol General Chief Complaint: ETOH/Substance Use Stated Complaint: ETOH Time Seen by Provider: 05/07/25 01:52 Source: patient Mode of arrival: ambulatory Limitations: no limitations History of Present Illness ED Provider: Dr. Inez Howe HPI narrative: Patient comes to the emergency room complaining of nausea, alcohol intoxication. Patient denies any falls. Patient states that she was too drunk to make it back to her dorm. Patient denies any falls or any injuries. Related Data Home Medications ?Medication ?Instructions ?Recorded ?Confirmed dextroamphetamine-amphetamine ER 1 cap PO QAM 12/15/23 10/05/24 25 mg 24hr capsule,extend release dextroamphetamine-amphetamine ER 1 cap PO DAILY 12/15/23 10/05/24 30 mg 24hr capsule,extend release escitalopram oxalate 10 mg tablet 10 mg PO DAILY 12/15/23 10/05/24 dextroamphetamine-amphetamine 12.5 12.5 mg PO BID 10/05/24 10/05/24 mg tablet (Adderall) Previous Rx's ?Medication ?Instructions ?Recorded cholecalciferol (vitamin D3) 1,250 1,250 mcg PO QWEEK 90 days #13 caps 10/14/24 mcg (50,000 unit) capsule Allergies Allergy/AdvReac Type Severity Reaction Status Date / Time devyn Allergy Mild Itching Uncoded 05/07/25 01:43 Review of Systems Review of Systems: Constitutional : No Weight loss, No Fever, No Chills, No Night Sweats, No Fatigue, No Malaise ENT/Mouth : No Hearing loss, No Ear Pain, No Nasal Congestion, No Sinus Pain, No Hoarseness, No sore throat, No Rhinorrhea, No Swallowing Difficulty Eyes: No Eye Pain, No Swelling, No Redness, No Foreign Body, No Discharge, No Vision Changes Cardiovascular : No Chest Pain, No SOB, No Dyspnea on Exertion, No Orthopnea, No Edema, No Palpitations Respiratory : No Cough, No Sputum, No Wheezing, No Smoke Exposure, No Dyspnea Gastrointestinal : Complaining of Nausea, No Vomiting, No Diarrhea, No Constipation, No abdominal Pain, No Hematochezia, No Melena Genitourinary : no irregular bleeding, No Dysuria, No Urinary Frequency, No Hematuria, No Urinary Incontinence, No Urgency, No Flank Pain, No Urinary Flow Changes, No Hesitancy Musculoskeletal : No joint pain, No Myalgias, No Joint Swelling Skin : No Skin Lesions, No rash Neuro : No Weakness, No Numbness, No Paresthesias, No Loss of Consciousness, No Dizziness, No Headache Psych : No Anxiety/Panic, No Depression, No SI/HI/AH/VH, No Social Issues, patient admits to drinking too much alcohol today. Denies drug use. Heme/Lymph: No Bruising, No Bleeding,No Lymphadenopathy Endocrine : No Polyuria, No Polydipsia, No Temperature Intolerance [facility] Past Medical History Medical History Raised antibody titer Iron deficiency anemia Paresthesia of skin Pain in joint, multiple sites Surgical History No history of previous surgery Family History Family History Father Hypertension Maternal Grandfather Heart disease Paternal Grandmother Breast cancer Mother No problems noted. Other Family history of diabetes mellitus Physical Exam ED Exam Exam: Appearance: Alert. Oriented X3. No acute distress. Eyes: Pupils equal, round and reactive to light. ENT: Pharynx normal. Neck: Normal inspection. Neck supple. No lymph nodes noted. No crepitus CVS: Normal heart rate and rhythm. Pulses normal. Normal S1 and S2 Respiratory: No respiratory distress. Breath sounds normal. No Wheezing. No rales Abdomen: Soft and nontender. No rigidity. No distention. Skin: Skin warm and dry. Normal skin color. Normal skin turgor. Extremities: No lower extremity edema. No Lacerations. No Rash Neuro: Oriented X 3. No motor deficit. No sensory deficit. Moving all extremities. No slurred speech. CN 2 through 12 grossly intact Psych: calm, cooperative, normal affect Vital Signs: Vital Signs - 24 hr 05/07/25 01:42 Temperature 96.9 F Pulse Rate 65 Respiratory Rate 20 Blood Pressure 100/60 Pulse Oximetry 100 Oxygen Delivery Method Room Air BMI result Body Mass Index 18.3 Course Course Course Narrative: Patient is awake, alert and oriented x3, calm and cooperative. Patient reporting nausea, no vomiting, no abdominal pain, no trauma Patient receiving p.o. Zofran I discussed with the patient that we will let her metabolize to freedom, once she is awake and has a sober ride, she may be discharged. Patient agrees with plan. Medical Decision Making Medical Decision Making MDM Narrative: Patient feeling better, declined Zofran, states that she is no longer nauseous. Patient has a sober ride that is here to pick her up Patient is alert and oriented x3, clinically sober, calm, cooperative, normal steady gait, denies SI or HI Differential Diagnosis Differential Diagnoses: The differential diagnosis associated with the presentation includes (Alcohol intoxication, polysubstance abuse) Medications Administered Discontinued Medications Generic Name Dose Route Start Last Admin Trade Name Derick PRN Reason Stop Dose Admin Ondansetron HCl 4 mg 05/07/25 01:54 05/07/25 03:02 Ondansetron Odt 4 Mg Tab.Rapdis TRANSLINGU 05/07/25 01:55 Not Given ONCE ONE Discharge Plan Discharge Clinical Impression: Alcoholic intoxication Patient Disposition: Home, Self-Care Instructions: Alcohol Intoxication (DC) Additional Instructions: Please follow-up with your primary care physician tomorrow. If you have any worsening or new symptoms, please return to the emergency room or call 911 Prescriptions: No Action cholecalciferol (vitamin D3) 1,250 mcg (50,000 unit) capsule 1,250 mcg PO QWEEK 90 Days Qty: 13 0RF dextroamphetamine-amphetamine 25 mg capsule,extended release 24hr 1 cap PO QAM dextroamphetamine-amphetamine 30 mg capsule,extended release 24hr 1 cap PO DAILY escitalopram oxalate 10 mg tablet 10 mg PO DAILY dextroamphetamine-amphetamine [Adderall] 12.5 mg tablet 12.5 mg PO BID Rx Instructions: administer doses at least 4-6 hours apart Print Language: Romanian
[2025-05-07 03:22] VITALS: BP 114/41; PULSE 88; RESP 16; TEMP 36.2; O2SAT 100
== END 2025-05-07 03:23 | disposition home or self-care (01) ==
LOC: HO.ED 03:18
PROVIDERS: Emergency Provider Emergency Medicine
DX: F10.129 Alcohol abuse with intoxication, unspecified (principal); R11.0 Nausea; Z79.899 Other long term (current) drug therapy; Y90.9 Presence of alcohol in blood, level not specified
CPT/HCPCS: 99283